=== PATIENT | female | born 1950 | race Caucasian/White ===

== ENCOUNTER → 2018-01-05 | Outpatient (CLI) | payer OTHER ==
[~2018-01-05] MED LIST: ULTRAM 50MG TAB50 MG PO; ZOFRAN8 MG PO
== END ==
LOC: MC.RAD 08:29
DX: Z12.31 Encounter for screening mammogram for malignant neoplasm of breast (principal)

== ENCOUNTER 2018-04-24 20:12 | Inpatient (IN) | payer OTHER ==
[~2018-04-24] VITALS: Ht 157.5 cm; Wt 74.5 kg
[2018-04-24 20:46] LABS: BASO % 0.2 % (0.0-2.0); EOS % 0.1 % (0-4.0); GRAN # 10.7 (1.4-6.5); GRAN % 84.5 % (42.2-75.2); HEMATOCRIT 42.8 % (37.0-47.0); HEMOGLOBIN 14.4 g/dl (12.5-16.0); LYMPH # 1.4 (1.2-3.4); LYMPH % 10.9 % (20.0-51.0); MEAN CELL VOLUME 85 fl (80.0-100.0); MEAN CORPUSCULAR HEMOGLOBIN 29 pg (27.0-31.0); MEAN CORPUSCULAR HGB CONC 34 g/dl (33.0-37.0); MEAN PLATELET VOLUME 9.9 fl (7.4-10.4); MONO # 0.5 (0.1-0.6); PLATELET COUNT 403 K/mm3 (130-400); RED BLOOD COUNT 5.02 M/mm3 (4.10-5.30); REDCELL DISTRIBUTION WIDTH-CV 13.8 % (11.5-14.5)
[2018-04-24 20:47] LABS: PROTHROMBIN TIME 11.7 SECONDS (9.7-12.8)
[2018-04-24 21:07] LABS: ALBUMIN 4.8 gm/dL (3.5-5.0); BILIRUBIN,TOTAL 0.6 mg/dL (0.0-1.0); CALCIUM 9.6 mg/dL (8.4-10.2); CREATININE, serum 0.7 mg/dL (0.52-1.25); POTASSIUM 3.9 mmol/L (3.4-5.0); TOTAL PROTEIN 9.1 gm/dL (6.4-8.2)
[2018-04-24 21:25] LABS: TROPONIN-I 0.044 ng/mL (0.000-0.034)
[2018-04-24 22:30] LABS: COLLECTION METHOD CLEAN CATCH
[2018-04-24 22:38] LABS: MUCOUS Present /lpf; PH 5 (5-8); SQUAMOUS EPITHELIAL 0-2 /hpf; URINE APPEARANCE Clear; URINE BACTERIA None Seen /hpf; URINE BILIRUBIN Negative (NEGATIVE); URINE BLOOD Negative (NEGATIVE); URINE COLOR Yellow; URINE GLUCOSE Negative (NEGATIVE); URINE KETONE Negative (NEGATIVE); URINE LEUKOCYTE ESTERASE 1+ (NEGATIVE); URINE NITRATE Negative (NEGATIVE); URINE PROTEIN(semi-quant) Negative (NEGATIVE); URINE UROBILINOGEN Negative (NEGATIVE)
[2018-04-25] VITALS (7 sets, daily range): BP systolic 117–142; BP diastolic 51–68; PULSE 57–70; TEMP 98–99.4
[2018-04-25] MEDS ORDERED: FIBRICOR105 MG PO (00:35)
[2018-04-25 00:53] LABS: MAGNESIUM 1.7 mg/dL (1.6-2.3)
[2018-04-25 06:48] LABS: BASO % 0.2 % (0.0-2.0); EOS # 0.1 (0.0-0.7); EOS % 0.8 % (0-4.0); GRAN # 7.6 (1.4-6.5); HEMATOCRIT 37.5 % (37.0-47.0); HEMOGLOBIN 12.6 g/dl (12.5-16.0); LYMPH # 1.4 (1.2-3.4); LYMPH % 13.6 % (20.0-51.0); MEAN CELL VOLUME 87 fl (80.0-100.0); MEAN CORPUSCULAR HEMOGLOBIN 29 pg (27.0-31.0); MEAN CORPUSCULAR HGB CONC 34 g/dl (33.0-37.0); MEAN PLATELET VOLUME 10.1 fl (7.4-10.4); MONO # 0.8 (0.1-0.6); MONO % 8.1 % (1.7-9.3); PLATELET COUNT 346 K/mm3 (130-400); RED BLOOD COUNT 4.31 M/mm3 (4.10-5.30); REDCELL DISTRIBUTION WIDTH-CV 13.9 % (11.5-14.5)
[2018-04-25 06:52] LABS: ALBUMIN 3.7 gm/dL (3.5-5.0); BILIRUBIN,TOTAL 0.5 mg/dL (0.0-1.0); CALCIUM 8.4 mg/dL (8.4-10.2); CREATININE, serum 0.65 mg/dL (0.52-1.25); POTASSIUM 3.6 mmol/L (3.4-5.0); TOTAL PROTEIN 7.1 gm/dL (6.4-8.2)
[2018-04-26] VITALS (649 sets, daily range): BP systolic 118–155; BP diastolic 51–75; PULSE 57–76; TEMP 97.8–98.2; O2SAT 93–99
[2018-04-26 07:33] LABS: BASO % 0.4 % (0.0-2.0); EOS # 0.2 (0.0-0.7); GRAN # 4.3 (1.4-6.5); GRAN % 60.7 % (42.2-75.2); HEMOGLOBIN 11.9 g/dl (12.5-16.0); LYMPH # 1.9 (1.2-3.4); LYMPH % 26.8 % (20.0-51.0); MEAN CELL VOLUME 86 fl (80.0-100.0); MEAN CORPUSCULAR HEMOGLOBIN 29 pg (27.0-31.0); MEAN CORPUSCULAR HGB CONC 33 g/dl (33.0-37.0); MEAN PLATELET VOLUME 10.3 fl (7.4-10.4); MONO # 0.6 (0.1-0.6); MONO % 8.8 % (1.7-9.3); PLATELET COUNT 335 K/mm3 (130-400); RED BLOOD COUNT 4.18 M/mm3 (4.10-5.30); REDCELL DISTRIBUTION WIDTH-CV 14.1 % (11.5-14.5)
[2018-04-26 07:39] LABS: HEMATOCRIT 36.1 % (37.0-47.0)
[2018-04-26 07:42] LABS: INR 1.1 (0.8-3.0); PROTHROMBIN TIME 12.6 SECONDS (9.7-12.8)
[2018-04-26 07:44] LABS: PARTIAL THROMBOPLASTIN TIME 33.8 SECONDS (26.0-37.0)
[2018-04-26 08:19] LABS: CALCIUM 8.6 mg/dL (8.4-10.2); CREATININE, serum 0.71 mg/dL (0.52-1.25); POTASSIUM 3.8 mmol/L (3.4-5.0)
[2018-04-27] VITALS (196 sets, daily range): BP systolic 109–130; BP diastolic 57–70; PULSE 65–66; TEMP 98.1–98.3; O2SAT 94–99
[2018-04-27 06:02] LABS: BASO % 0.6 % (0.0-2.0); EOS # 0.3 (0.0-0.7); EOS % 4.4 % (0-4.0); GRAN # 3.8 (1.4-6.5); HEMOGLOBIN 11.9 g/dl (12.5-16.0); LYMPH % 29.8 % (20.0-51.0); MEAN CELL VOLUME 85 fl (80.0-100.0); MEAN CORPUSCULAR HEMOGLOBIN 29 pg (27.0-31.0); MEAN CORPUSCULAR HGB CONC 34 g/dl (33.0-37.0); MEAN PLATELET VOLUME 9.7 fl (7.4-10.4); MONO # 0.7 (0.1-0.6); MONO % 9.9 % (1.7-9.3); PLATELET COUNT 309 K/mm3 (130-400); RED BLOOD COUNT 4.16 M/mm3 (4.10-5.30); REDCELL DISTRIBUTION WIDTH-CV 13.9 % (11.5-14.5)
[2018-04-27 06:11] LABS: HEMATOCRIT 35.5 % (37.0-47.0)
[2018-04-27 06:15] LABS: CALCIUM 8.6 mg/dL (8.4-10.2); CREATININE, serum 0.72 mg/dL (0.52-1.25); POTASSIUM 3.5 mmol/L (3.4-5.0)
== END 2018-04-27 11:40 | disposition home or self-care (01) | DRG 247 ==
LOC: COL.ER 20:12 → MEDICAL 23:43 → ICU 04-26 10:55
PROVIDERS: Emergency Medicine; Internal Medicine Interventional Cardiology; Nurse Practitioner Family; Student in an Organized Health Care Education/Training Program
PROC: 027034Z Dilation of Coronary Artery, One Artery with Drug-eluting Intraluminal Device, Percutaneous Approach (ICD-10-PCS; principal; 2018-04-26)
PROC: B2111ZZ Fluoroscopy of Multiple Coronary Arteries using Low Osmolar Contrast (ICD-10-PCS; 2018-04-26)
PROC: B2151ZZ Fluoroscopy of Left Heart using Low Osmolar Contrast (ICD-10-PCS; 2018-04-26)
DX: I21.4 Non-ST elevation (NSTEMI) myocardial infarction (principal); K80.10 Calculus of gallbladder with chronic cholecystitis without obstruction; I25.10 Atherosclerotic heart disease of native coronary artery without angina pectoris
CPT/HCPCS: 99223-AI; 99232-AI; 99233-AI; C1725; C1760; C1769; C1874; C1887; C1894; C9113; C9600; J0583; J0696; J1170; J2250; J2765; J3010; J7030; Q9967

== ENCOUNTER 2018-07-15 17:08 | Observation (INO) | payer OTHER ==
[~2018-07-15] VITALS: Ht 157.5 cm; Wt 71.4 kg
[~2018-07-15 17:08] MED LIST changes: +FIBRICOR105 MG PO
[2018-07-15 17:51] LABS: BASO % 0.5 % (0.0-2.0); EOS # 0.1 (0.0-0.7); GRAN # 3.9 (1.4-6.5); HEMATOCRIT 43.1 % (37.0-47.0); LYMPH # 1.8 (1.2-3.4); LYMPH % 28.7 % (20.0-51.0); MEAN CELL VOLUME 88 fl (80.0-100.0); MEAN CORPUSCULAR HEMOGLOBIN 29 pg (27.0-31.0); MEAN CORPUSCULAR HGB CONC 33 g/dl (33.0-37.0); MEAN PLATELET VOLUME 9.6 fl (7.4-10.4); MONO # 0.5 (0.1-0.6); MONO % 7.6 % (1.7-9.3); PLATELET COUNT 287 K/mm3 (130-400); RED BLOOD COUNT 4.91 M/mm3 (4.10-5.30); REDCELL DISTRIBUTION WIDTH-CV 14.2 % (11.5-14.5)
[2018-07-15 18:08] LABS: ALANINE AMINOTRANSFERASE 40 U/L (9-52); ALBUMIN 4.6 gm/dL (3.5-5.0); ALKALINE PHOSPHATASE 68 U/L (50-136); ANION GAP 15 mmol/L (7-16); AST,SGOT 60 U/L (15-37); BILIRUBIN,TOTAL 0.4 mg/dL (0.0-1.0); BLOOD UREA NITROGEN 18 mg/dL (7-17); CALCIUM 9.2 mg/dL (8.4-10.2); CARBON DIOXIDE 24 mmol/L (22-30); CHLORIDE 101 mmol/L (98-107); CREATININE, serum 0.68 mg/dL (0.52-1.25); GLUCOSE 117 mg/dL (74-106); LIPASE 127 U/L (23-300); POTASSIUM 4.1 mmol/L (3.4-5.0); SODIUM 139 mmol/L (137-145)
[2018-07-15 18:21] LABS: TROPONIN-I < 0.012 ng/mL (0.000-0.034)
[2018-07-15] MEDS ORDERED: PLAVIX 75MG TAB75 MG PO (18:37)
[2018-07-15] MEDS ORDERED: ASPIRIN 81M81 MG/TA2 PO (18:38)
[2018-07-15] MEDS ORDERED: LOPRESSOR 225 MG/TAB PO (18:38)
[2018-07-15 20:46] VITALS: BP 97/52; PULSE 57; TEMP 98.2
[2018-07-15] MEDS ORDERED: REPATHA SU140 MG/1 M SQ (20:53)
[2018-07-15 22:15] VITALS: BP 123/60; PULSE 56
[2018-07-15 22:52] VITALS: BP 116/51; PULSE 52; TEMP 97.6
[2018-07-15 23:56] VITALS: O2SAT 100
[2018-07-15 23:57] VITALS: O2SAT 96
[2018-07-15 23:58] VITALS: O2SAT 98
[2018-07-16] VITALS (519 sets, daily range): BP systolic 97–128; BP diastolic 47–85; PULSE 54–74; TEMP 97.6–98.3; O2SAT 90–100
[2018-07-16 14:33] LABS: ARTERIAL BLD GAS O2 SATURATION 95.2 % (92-100); ARTERIAL BLD GAS TCO2 CT 24.6; ARTERIAL BLOOD GAS BASE EXCESS -0.3 (-2-2); ARTERIAL BLOOD GAS HCO3 23.5 meq/L (22-26); ARTERIAL BLOOD GAS PCO2 35.9 mmHg (35-45); ARTERIAL BLOOD GAS pH 7.43 (7.35-7.45)
[2018-07-16 14:54] LABS: HEMATOCRIT 40.9 % (37.0-47.0); HEMOGLOBIN 13.6 g/dl (12.5-16.0); MEAN CELL VOLUME 86 fl (80.0-100.0); MEAN CORPUSCULAR HEMOGLOBIN 29 pg (27.0-31.0); MEAN CORPUSCULAR HGB CONC 33 g/dl (33.0-37.0); MEAN PLATELET VOLUME 9.7 fl (7.4-10.4); PLATELET COUNT 288 K/mm3 (130-400); RED BLOOD COUNT 4.77 M/mm3 (4.10-5.30); REDCELL DISTRIBUTION WIDTH-CV 13.8 % (11.5-14.5)
[2018-07-16 14:58] LABS: INR 1.1 (0.8-3.0)
[2018-07-16 15:01] LABS: PARTIAL THROMBOPLASTIN TIME 35.3 SECONDS (26.0-37.0)
[2018-07-16 15:02] LABS: CALCIUM 8.8 mg/dL (8.4-10.2); CREATININE, serum 0.61 mg/dL (0.52-1.25); POTASSIUM 3.7 mmol/L (3.4-5.0)
[2018-07-17 04:00] VITALS: BP 124/56; PULSE 58; TEMP 97.9
[2018-07-17 07:33] VITALS: BP 134/59; PULSE 55; TEMP 97.9
[2018-07-17 12:10] VITALS: BP 122/52; PULSE 50; TEMP 97.8
== END 2018-07-17 17:42 | disposition home or self-care (01) ==
LOC: COL.ER 17:08 → SURG 18:41 → ICU 18:41 → SURG 22:11 → ICU 07-16 00:10 → MEDICAL 07-16 21:28
PROVIDERS: Emergency Medicine; Internal Medicine Interventional Cardiology
DX: R07.89 Other chest pain (principal); I25.10 Atherosclerotic heart disease of native coronary artery without angina pectoris; Z95.5 Presence of coronary angioplasty implant and graft; E78.5 Hyperlipidemia, unspecified; K80.80 Other cholelithiasis without obstruction; R09.02 Hypoxemia; I44.7 Left bundle-branch block, unspecified; Z79.82 Long term (current) use of aspirin; Z79.02 Long term (current) use of antithrombotics/antiplatelets; Z79.899 Other long term (current) drug therapy; Z82.49 Family history of ischemic heart disease and other diseases of the circulatory system
CPT/HCPCS: C1760; C1894; G0378; J1644; J2250; J3010; Q9967

== ENCOUNTER 2018-09-16 07:00 | Day surgery (SDC) | payer OTHER ==
[~2018-09-16] VITALS: Ht 157.5 cm; Wt 72.3 kg
[2018-09-16] VITALS (9 sets, daily range): BP systolic 108–124; BP diastolic 54–77; PULSE 55–81; TEMP 97.5–97.9
[~2018-09-16 07:00] MED LIST changes: +ASPIRIN 81M81 MG/TA2 PO; +LOPRESSOR 225 MG/TAB PO; +PLAVIX 75MG TAB75 MG PO; +REPATHA SU140 MG/1 M SQ
[2018-09-16] MEDS ORDERED: TYLENOL 325MG325 MG PO (08:08)
[2018-09-16] MEDS ORDERED: MULTIPLE VITAMI1 CAP PO (08:09)
[2018-09-16] MEDS ORDERED: NORCO 325 MG-51 TAB PO (11:14)
== END 2018-09-16 14:30 | disposition home or self-care (01) ==
LOC: SDCO 07:00
DX: K80.10 Calculus of gallbladder with chronic cholecystitis without obstruction (principal); I25.10 Atherosclerotic heart disease of native coronary artery without angina pectoris; I25.2 Old myocardial infarction; Z95.5 Presence of coronary angioplasty implant and graft; Z79.82 Long term (current) use of aspirin; Z79.02 Long term (current) use of antithrombotics/antiplatelets; Z79.899 Other long term (current) drug therapy; I10 Essential (primary) hypertension
CPT/HCPCS: J0690; J1100; J2405; J2704; J2710; J3010; J7120; Q9967

== ENCOUNTER → 2019-01-24 | Outpatient (CLI) | payer OTHER ==
[~2019-01-24] MED LIST changes: +MULTIPLE VITAMI1 CAP PO; +NORCO 325 MG-51 TAB PO; +TYLENOL 325MG325 MG PO
== END ==
LOC: MC.RAD 14:13
DX: Z12.31 Encounter for screening mammogram for malignant neoplasm of breast (principal)

== ENCOUNTER → 2020-11-12 | Outpatient (CLI) | payer OTHER | LOC: COL.RAD 07:48 | DX: M18.12 Unilateral primary osteoarthritis of first carpometacarpal joint, left hand (principal) | CPT/HCPCS: J3301; Q9967 ==